=== PATIENT | male | born 1940 | race Caucasian/White ===

== ENCOUNTER 2018-10-10 12:26 | Emergency (ER) | payer MEDICARE, OTHER ==
[2018-10-10 12:44] VITALS: BP 183/83
--- NOTE | 2018-10-10 14:05 | EDM.PDOC ---
ED HPI GENERAL MEDICAL PROBLEM - General Chief Complaint: Lower Extremity Injury/Pain Stated Complaint: LEG INJURY Time Seen by Provider: 10/10/18 12:37 Source of Information: Reports: Patient History Limitations: Reports: No Limitations - History of Present Illness INITIAL COMMENTS - FREE TEXT/NARRATIVE: HISTORY AND PHYSICAL: History of present illness: Patient is a 78-year-old male who presents to the ED today with concern of a left hamstring injury. Patient states that a month ago he initially injured it while playing tennis. He states he saw his primary care provider at that time and did physical therapy with improvement of his hamstring. He states that a week ago, he was walking up the stairs and felt another "pop" of the same hamstring that he injured prior. He states that since then, he has not been able to get into his primary care provider to be evaluated. He does have an appointment in [address] Vasquez for evaluation of his hamstring. He rates his pain a 4 out of 10. He states he is taking Tylenol for his pain and discomfort. Patient denies fever, chills, chest pain, shortness of breath, or cough. Denies headache, neck stiff ness, change in vision, syncope, or near syncope. Denies nausea, vomiting, abdominal pain, diarrhea, constipation, or dysuria. Has not noted any blood in urine or stool. Patient has been eating and drinking appropriately. Review of systems: As per history of present illness and below otherwise all systems reviewed and negative. Past medical history: As per history of present illness and as reviewed below otherwise noncontributory. Surgical history: As per history of present illness and as reviewed below otherwise noncontributory. Social history: See social history for further information Family history: As per history of present illness and as reviewed below otherwise noncontributory. Physical exam: General: Patient is alert, oriented, and in no acute distress. He is sitting comfortably on exam table. HEENT: Atraumatic, normocephalic, pupils equal and reactive bilaterally, negative for conjunctival pallor or scleral icterus, mucous membranes moist, TMs normal bilaterally, throat clear, neck supple, nontender, trachea midline. No drooling or trismus noted. No meningeal signs. No hot potato voice noted. Lungs: Clear to auscultation, breath sounds equal bilaterally, chest nontender. Heart: S1S2, regular rate and rhythm without overt murmur Abdomen: Soft, nondistended, nontender. Negative for masses or hepatosplenomegaly. Negative for costovertebral tenderness. Pelvis: Stable nontender. Genitourinary: Deferred. Rectal: Deferred. Skin: See extremity. Intact, warm, dry. No lesions or rashes noted. Extremities: Atraumatic, negative for cords or calf pain. Neurovascular unremarkable. Patient does have moderate pain to palpation of the left hamstring body. There is several areas of bruising along the hamstring muscle/ body that correlate to where patient's pain is located. There is no edema or erythema of the leg. Dorsalis pedis and posterior tibial pulses are grossly intact bilaterally. Neuro: Awake, alert, oriented. Cranial nerves II through XII unremarkable. Cerebellum unremarkable. Motor and sensory unremarkable throughout. Exam nonfocal. Notes: Dr. Orellana was directly involved with patients care. Discussed with patient the importance to follow-up as scheduled with his primary care provider or with an orthopedic provider. Supportive care measures were reviewed and discussed. Voices understanding and is agreeable to plan of care. Denies any further questions or concerns at this time. Diagnostics: None Therapeutics: None Prescription: Voltaren Gel Impression: Hamstring injury Plan: 1. Rest, ice, elevate the affected extremity. You can apply ice and/or heat 15 minutes on, 15 minutes off. 2. Tylenol and/or Ibuprofen as directed for pain management or discomfort. 3. Follow up with the Orthopedic provider or primary care provider as discussed. Return to the ED as needed and as discussed. Definitive disposition and diagnosis as appropriate pending reevaluation and review of above. Right Leg Pain Score (Numeric/FACES): 7 - Related Data Allergies Allergy/AdvReac Type Severity Reaction Status Date / Time No Known Allergies Allergy Verified 02/06/16 10:49 Home Meds: Home Meds Levothyroxine [Synthroid] 100 mcg PO DAILY 04/06/14 [History] Omeprazole 20 mg PO DAILY 04/06/14 [History] amLODIPine [Norvasc] 5 mg PO DAILY 04/06/14 [History] Diclofenac Sodium [Voltaren] 75 mg PO ONETIME 01/19/16 [History] Valsartan [Diovan] 25 mg PO DAILY 01/19/16 [History] Pravastatin [Pravachol] 1 tab PO DAILY 02/06/16 [History] Past Medical History Cardiovascular History: Reports: High Cholesterol, Hypertension Gastrointestinal History: Reports: GERD Endocrine/Metabolic History: Reports: Hypothyroidism - Past Surgical History Cardiovascular Surgical History: Reports: Coronary Artery Bypass Social & Family History - Family History Cardiac: Reports: CAD Oncologic: Reports: Brain - Tobacco Use Smoking Status *Q: Never Smoker Second Hand Smoke Exposure: No - Caffeine Use Caffeine Use: Reports: None - Recreational Drug Use Recreational Drug Use: No Review of Systems - Review of Systems Review Of Systems: ROS reveals no pertinent complaints other than HPI. ED EXAM, GENERAL - Physical Exam Exam: See Below (see dictation) Course - Vital Signs Last Recorded V/S: Last Vital Signs Temp 36.4 C 10/10/18 12:42 Pulse 80 10/10/18 12:42 Resp 20 10/10/18 12:42 BP 183/83 H 10/10/18 12:42 Pulse Ox 98 10/10/18 12:42 Departure - Departure Time of Disposition: 14:00 Disposition: Home, Self-Care 01 Clinical Impression: Hamstring injury Qualifiers: Encounter type: initial encounter Laterality: left Qualified Code(s): S76.302A - Unspecified injury of muscle, fascia and tendon of the posterior muscle group at thigh level, left thigh, initial encounter - Discharge Information Instructions: Muscle Strain, [id number] Referrals: PCP,Unknown [Primary Care Provider] - Forms: ED Department Discharge Additional Instructions: The following information is given to patients seen in the emergency department who are being discharged to home. This information is to outline your options for follow-up care. We provide all patients seen in our emergency department with a follow-up referral. The need for follow-up, as well as the timing and circumstances, are variable depending upon the specifics of your emergency department visit. If you don't have a primary care physician on staff, we will provide you with a referral. We always advise you to contact your personal physician following an emergency department visit to inform them of the circumstance of the visit and for follow-up with them and/or the need for any referrals to a consulting specialist. The emergency department will also refer you to a specialist when appropriate. This referral assures that you have the opportunity for follow-up care with a specialist. All of these measure are taken in an effort to provide you with optimal care, which includes your follow-up. Under all circumstances we always encourage you to contact your private physician who remains a resource for coordinating your care. When calling for follow-up care, please make the office aware that this follow-up is from your recent emergency room visit. If for any reason you are refused follow-up, please contact the [facility] Emergency Department at and asked to speak to the emergency department charge nurse. [facility] [address] [place] [id number] [id number] 1. Rest, ice, elevate the affected extremity. You can apply ice and/or heat 15 minutes on, 15 minutes off. 2. Tylenol and/or Ibuprofen as directed for pain management or discomfort. 3. Follow up with the Orthopedic provider or primary care provider as discussed. Return to the ED as needed and as discussed.
== END 2018-10-10 14:20 | disposition home or self-care (01) ==
LOC: MW.ED 12:26
DX: S76.302A Unspecified injury of muscle, fascia and tendon of the posterior muscle group at thigh level, left thigh, initial encounter (principal); I10 Essential (primary) hypertension; E78.00 Pure hypercholesterolemia, unspecified; K21.9 Gastro-esophageal reflux disease without esophagitis; E03.9 Hypothyroidism, unspecified; Z79.899 Other long term (current) drug therapy; X58.XXXA Exposure to other specified factors, initial encounter
CPT/HCPCS: 99282; 99283

== ENCOUNTER 2018-12-02 07:08 | Emergency (ER) | payer MEDICARE, OTHER ==
[2018-12-02] MEDS ORDERED: Sodium Chloride 0.9% 500 ML IV SCH (07:15)
--- NOTE | 2018-12-02 07:34 | EDM.PDOC ---
ED HPI GENERAL MEDICAL PROBLEM - General Chief Complaint: Gastrointestinal Problem Stated Complaint: DIARRHEA FOR 3 DAYS Time Seen by Provider: 12/02/18 07:33 Source of Information: Reports: Patient - History of Present Illness INITIAL COMMENTS - FREE TEXT/NARRATIVE: HISTORY AND PHYSICAL: History of present illness: [Patient presents with loose watery stools multiple per day Thursday and Thursday, he has been taking Imodium applesauce bananas toast which has all his stools somewhat to semi-formed stool he denies any blood or mucus no pain he does have some crampy sensations in his abdomen occasionally, bowel movement was just prior to arrival He is in no distress no fever nausea vomiting chills sweats no chest pain shortness breath headache dizziness palpitation no urine symptoms ] Review of systems: As per history of present illness and below otherwise all systems reviewed and negative. Past medical history: As per history of present illness and as reviewed below otherwise noncontributory. Surgical history: As per history of present illness and as reviewed below otherwise noncontributory. Social history: No reported history of drug or alcohol abuse. Family history: As per history of present illness and as reviewed below otherwise noncontributory. Physical exam: HEENT: Atraumatic, normocephalic, pupils reactive, negative for conjunctival pallor or scleral icterus, mucous membranes moist, throat clear, neck supple, nontender, trachea midline. Lungs: Clear to auscultation, breath sounds equal bilaterally, chest nontender. Heart: S1S2, regular, negative for clicks, rubs, or JVD. Abdomen: Soft, nondistended, nontender. Negative for masses or hepatosplenomegaly. Negative for costovertebral tenderness. Pelvis: Stable nontender. Genitourinary: Deferred. Rectal: Deferred. Extremities: Atraumatic, negative for cords or calf pain. Neurovascular unremarkable. Neuro: Awake, alert, oriented. Cranial nerves II through XII unremarkable. Cerebellum unremarkable. Motor and sensory unremarkable throughout. Exam nonfocal. Diagnostics: [CBC CMP UA troponin lipase Stool cultures O&P norovirus guaiac Therapeutics: [Normal saline ]Reglan 10 mg IV I did offer the patient admission however he refused , and sent did provide IV Reglan recommend he stop Imodium strongly advised return if symptoms persist or worsen I did provide a stool collection equipment to return a stool sample today for stool testing as outlined above, certainly would admit done as return Impression: [Gastroenteritis] Ileus-likely medication effect from Imodium Definitive disposition and diagnosis as appropriate pending reevaluation and review of above. - Related Data Allergies Allergy/AdvReac Type Severity Reaction Status Date / Time No Known Allergies Allergy Verified 02/06/16 10:49 Home Meds: Home Meds Levothyroxine [Synthroid] 100 mcg PO DAILY 04/06/14 [History] Omeprazole 20 mg PO DAILY 04/06/14 [History] amLODIPine [Norvasc] 5 mg PO DAILY 04/06/14 [History] Valsartan [Diovan] 25 mg PO DAILY 01/19/16 [History] Pravastatin [Pravachol] 1 tab PO DAILY 02/06/16 [History] Aspirin 81 mg PO DAILY 12/02/18 [History] Metoprolol Tartrate 25 mg PO DAILY 12/02/18 [History] Past Medical History HEENT History: Reports: Impaired Vision Cardiovascular History: Reports: Bypass, High Cholesterol, Hypertension, HI Gastrointestinal History: Reports: GERD Endocrine/Metabolic History: Reports: Hypothyroidism - Past Surgical History Cardiovascular Surgical History: Reports: Coronary Artery Bypass Social & Family History - Family History Family Medical History: Noncontributory Cardiac: Reports: CAD Oncologic: Reports: Brain - Tobacco Use Smoking Status *Q: Never Smoker - Caffeine Use Caffeine Use: Reports: Coffee - Recreational Drug Use Recreational Drug Use: No ED ROS GENERAL - Review of Systems Review Of Systems: See Below ED EXAM, GENERAL - Physical Exam Exam: See Below Course - Vital Signs Last Recorded V/S: Last Vital Signs Temp 98.6 F 12/02/18 07:25 Pulse 94 12/02/18 07:25 Resp 16 12/02/18 07:25 BP 136/72 12/02/18 07:25 Pulse Ox 98 12/02/18 07:25 - Orders/Labs/Meds Orders: Active Orders 24 hr Category Date Time Status Abdomen 2V AP Flat Upright [CR] Stat Exams 12/02/18 08:04 Taken CDIFF TOX A+B [OP] Stat Lab 12/02/18 07:09 Ordered CULTURE STOOL + CAMPY+SHIGATOX [RM] Stat Lab 12/02/18 07:09 Ordered NOROVIRUS, RT-PCR Stat Lab 12/02/18 07:09 Ordered OCCULT BLOOD DIAGNOSTIC [OP] Stat Lab 12/02/18 07:09 Ordered OVA & PARASITES BY IMMUNOASSAY [MREF] Stat Lab 12/02/18 07:09 Ordered UA RFX MARNIE AND CULT IF INDIC [URIN] Stat Lab 12/02/18 07:09 Ordered Metoclopramide [Reglan] Med 12/02/18 09:10 Once 10 mg IV ONETIME ONE Sodium Chloride 0.9% [Normal Saline] 500 ml Med 12/02/18 07:15 Active IV STAT Isolation [COMM] Stat Oth 12/02/18 07:11 Ordered Medication Orders Sodium Chloride (Normal Saline) 500 mls @ 999 mls/hr IV STAT MIRA Last Admin: 12/02/18 07:41 Dose: 999 mls/hr Labs: Laboratory Tests 12/02/18 12/02/18 Range/Units 07:35 07:35 WBC 8.11 (4.0-11.0) K/uL RBC 4.89 (4.50-5.90) M/uL Hgb 15.0 (13.0-17.0) g/dL Hct 42.0 (38.0-50.0) % MCV 85.9 (80.0-98.0) fL MCH 30.7 (27.0-32.0) pg MCHC 35.7 (31.0-37.0) g/dL RDW Std Deviation 41.4 (28.0-62.0) fl RDW Coeff of [place] 13 (11.0-15.0) % Plt Count 214 (150-400) K/uL MPV 9.80 (7.40-12.00) fL Add Manual Diff YES Neutrophils % (Manual) 69 (48.0-80.0) % Band Neutrophils % 5 % Lymphocytes % (Manual) 10 L (16.0-40.0) % Monocytes % (Manual) 14 (0.0-15.0) % Eosinophils % (Manual) 2 (0.0-7.0) % Nucleated RBC % 0.0 /100WBC Absolute Seg Neuts 5.6 (1.4-5.7) Band Neutrophils # 0.4 Lymphocytes # (Manual) 0.8 (0.6-2.4) Monocytes # (Manual) 1.1 H (0.0-0.8) Eosinophils # (Manual) 0.2 (0.0-0.7) Nucleated RBCs # 0 K/uL Sodium 131 L (136-148) mmol/L Potassium 3.3 L (3.5-5.1) mmol/L Chloride 96 L (98-107) mmol/L Carbon Dioxide 23.3 (21.0-32.0) mmol/L BUN 11 (7.0-18.0) mg/dL Creatinine 1.0 (0.8-1.3) mg/dL Est Cr Clr Drug Dosing 61.85 mL/min Estimated GFR (MDRD) > 60.0 ml/min Glucose 119 H (74-106) mg/dL Calcium 8.7 (8.5-10.1) mg/dL Total Bilirubin 0.7 (0.2-1.0) mg/dL AST 21 (15-37) IU/L ALT 29 (14-63) IU/L Alkaline Phosphatase 64 (46-116) U/L Troponin I < 0.050 (0.000-0.056) ng/mL Total Protein 7.0 (6.4-8.2) g/dL Albumin 3.4 (3.4-5.0) g/dL Globulin 3.6 (2.6-4.0) g/dL Albumin/Globulin Ratio 0.9 (0.9-1.6) Lipase 102 (73-393) U/L Meds: Medications Generic Name Dose Route Start Last Admin Trade Name Freq PRN Reason Stop Dose Admin Sodium Chloride 500 mls @ 999 mls/hr 12/02/18 07:15 12/02/18 07:41 Normal Saline IV 999 mls/hr STAT MIRA Administration Departure - Departure Time of Disposition: 09:14 Disposition: Home, Self-Care 01 Condition: Good, Fair Clinical Impression: Gastroenteritis, Ileus - Discharge Information Referrals: Israel Vasquez MD [Primary Care Provider] - Forms: ED Department Discharge Additional Instructions: Return stool sample collection equipment provided Medication as prescribed Operative Imodium Pepto-Bismol with each loose stool Again return if symptoms persist or worsen for consideration of admission The following information is given to patients seen in the emergency department who are being discharged to home. This information is to outline your options for follow-up care. We provide all patients seen in our emergency department with a follow-up referral. The need for follow-up, as well as the timing and circumstances, are variable depending upon the specifics of your emergency department visit. If you don't have a primary care physician on staff, we will provide you with a referral. We always advise you to contact your personal physician following an emergency department visit to inform them of the circumstance of the visit and for follow-up with them and/or the need for any referrals to a consulting specialist. The emergency department will also refer you to a specialist when appropriate. This referral assures that you have the opportunity for follow-up care with a specialist. All of these measure are taken in an effort to provide you with optimal care, which includes your follow-up. Under all circumstances we always encourage you to contact your private physician who remains a resource for coordinating your care. When calling for follow-up care, please make the office aware that this follow-up is from your recent emergency room visit. If for any reason you are refused follow-up, please contact the [facility] emergency department at and asked to speak to the emergency department charge nurse. - My Orders Last 24 Hours: My Active Orders 12/02/18 07:09 CDIFF TOX A+B [OP] Stat CULTURE STOOL + CAMPY+SHIGATOX [RM] Stat NOROVIRUS, RT-PCR Stat OCCULT BLOOD DIAGNOSTIC [OP] Stat OVA & PARASITES BY IMMUNOASSAY [MREF] Stat UA RFX MARNIE AND CULT IF INDIC [URIN] Stat 12/02/18 07:11 Isolation [COMM] Stat 12/02/18 07:15 Sodium Chloride 0.9% [Normal Saline] 500 ml IV STAT 12/02/18 08:04 Abdomen 2V AP Flat Upright [CR] Stat 12/02/18 09:10 Metoclopramide [Reglan] 10 mg IV ONETIME ONE - Assessment/Plan Last 24 Hours: My Active Orders 12/02/18 07:09 CDIFF TOX A+B [OP] Stat CULTURE STOOL + CAMPY+SHIGATOX [RM] Stat NOROVIRUS, RT-PCR Stat OCCULT BLOOD DIAGNOSTIC [OP] Stat OVA & PARASITES BY IMMUNOASSAY [MREF] Stat UA RFX MARNIE AND CULT IF INDIC [URIN] Stat 12/02/18 07:11 Isolation [COMM] Stat 12/02/18 07:15 Sodium Chloride 0.9% [Normal Saline] 500 ml IV STAT 12/02/18 08:04 Abdomen 2V AP Flat Upright [CR] Stat 12/02/18 09:10 Metoclopramide [Reglan] 10 mg IV ONETIME ONE
[2018-12-02 08:27] LABS: CHLORIDE,CL 96 mmol/L (98-107); SODIUM,NA 131 mmol/L (136-148)
[2018-12-02] MEDS ORDERED: Metoclopramide 10 MG/2 ML SDV IV ONE (09:10)
[2018-12-02 09:29] VITALS: BP 136/81
--- NOTE | 2018-12-02 16:37 | CR ---
EXAM DATE: 12/02/18 PATIENT'S AGE: 78 Patient: ALYSHA JOSÉ Facility: [facility] Site Site : [id number] Study: XRay-Abdomen [id number]/30/2019 8:51:11 AM Ordering Physician: RADHA MAS MD Final Report: INDICATION: Abdominal pain; diarrhea. COMPARISON: None. TECHNIQUE: Two-view study abdomen including upright. FINDINGS: Dilatation of the small bowl loops in the right and left lower abdomen. Copious amounts of retained stool in the colon. No pneumoperitoneum. Postop changes lower lumbar spine. No abnormal intra-abdominal calcifications. Extensive vascular calcifications identified throughout. IMPRESSION: 1. Dilated small bowel; ileus versus partial mechanical small bowel obstruction. 2. Postop changes lower lumbar spine. 3. No pneumoperitoneum. Dictated by Rishi Workman MD @ Dec 02 2018 8:54AM Signed by: Rishi Workman MD @12/02/2018 8:57:44 AM (Electronic Signature) Report Signed by Proxy. [facility]
== END 2018-12-02 09:29 | disposition home or self-care (01) ==
LOC: MW.ED 07:08
DX: K52.9 Noninfective gastroenteritis and colitis, unspecified (principal); K56.7 Ileus, unspecified; K21.9 Gastro-esophageal reflux disease without esophagitis; E78.00 Pure hypercholesterolemia, unspecified; I10 Essential (primary) hypertension; I25.2 Old myocardial infarction; E03.9 Hypothyroidism, unspecified; Z79.899 Other long term (current) drug therapy
CPT/HCPCS: 36415; 74019; 80053; 81001; 82272; 83690; 84484; 85025; 87046; 87324; 87328; 87329; 87798; 87899; 96374; 99284; J2765; J7040

== ENCOUNTER 2021-11-28 21:35 | Emergency (ER) | payer MEDICARE, OTHER ==
[2021-11-28] MEDS ORDERED: Sodium Chloride 0.9% 1,000 ML IV ONE (22:09)
[2021-11-28 23:47] LABS: BLOOD UREA NITROGEN,BUN 21 mg/dL (7.0-18.0); CARBON DIOXIDE,CO2 25.6 mmol/L (21.0-32.0); CHLORIDE,CL 101 mmol/L (98-107); GLUCOSE RANDOM 99 mg/dL (74-106); LIPASE 112 U/L (73-393); POTASSIUM,K 3.3 mmol/L (3.5-5.1); SODIUM,NA 138 mmol/L (136-148)
[2021-11-29] MEDS ORDERED: Iopamidol 755 MG/ML 500 ML Multipack Bottle IVPUSH STA (00:29)
[2021-11-29] MEDS ORDERED: Simethicone 80 MG Tab.Chew PO STA (01:25)
[2021-11-29 01:39] VITALS: BP 131/88; PULSE 78
== END 2021-11-29 01:35 | disposition home or self-care (01) ==
LOC: MW.ED 21:35
DX: R10.9 Unspecified abdominal pain (principal); E78.00 Pure hypercholesterolemia, unspecified; I10 Essential (primary) hypertension; I25.2 Old myocardial infarction; K21.9 Gastro-esophageal reflux disease without esophagitis; E03.9 Hypothyroidism, unspecified; Z79.899 Other long term (current) drug therapy; Z79.82 Long term (current) use of aspirin; Z95.5 Presence of coronary angioplasty implant and graft; Z86.16 Personal history of COVID-19
CPT/HCPCS: 36415; 71045; 74177; 80053; 81001; 83605; 83690; 84484; 85025; 93005; 99284; A9270; J7030; Q9967; 99283

== ENCOUNTER 2023-03-18 16:08 | Emergency (ER) | payer MEDICARE, OTHER ==
[2023-03-18 18:10] VITALS: BP 149/94; PULSE 73
== END 2023-03-18 18:09 | disposition home or self-care (01) ==
LOC: MW.ED 16:08
DX: I10 Essential (primary) hypertension (principal); E78.5 Hyperlipidemia, unspecified; E03.9 Hypothyroidism, unspecified; K21.9 Gastro-esophageal reflux disease without esophagitis; Z71.1 Person with feared health complaint in whom no diagnosis is made; Z79.899 Other long term (current) drug therapy; Z79.82 Long term (current) use of aspirin; Z95.1 Presence of aortocoronary bypass graft
CPT/HCPCS: 93005; 93010; 99282; 99283

== ENCOUNTER 2023-10-25 16:36 | Emergency (ER) | payer MEDICARE, OTHER ==
[2023-10-25 17:17] VITALS: BP 169/106; PULSE 85
== END 2023-10-25 17:17 | disposition home or self-care (01) ==
LOC: MW.ED 16:36
DX: I10 Essential (primary) hypertension (principal); E03.9 Hypothyroidism, unspecified; K21.9 Gastro-esophageal reflux disease without esophagitis; Z95.1 Presence of aortocoronary bypass graft; Z79.82 Long term (current) use of aspirin; Z79.899 Other long term (current) drug therapy
CPT/HCPCS: 99283

== ENCOUNTER 2023-10-26 20:36 | Emergency (ER) | payer MEDICARE, OTHER ==
[2023-10-26 21:21] VITALS: BP 157/86; PULSE 74
== END 2023-10-26 21:21 | disposition home or self-care (01) ==
LOC: MW.ED 20:36
DX: I10 Essential (primary) hypertension (principal); K21.9 Gastro-esophageal reflux disease without esophagitis; E03.9 Hypothyroidism, unspecified; Z79.82 Long term (current) use of aspirin; Z95.1 Presence of aortocoronary bypass graft; Z79.899 Other long term (current) drug therapy
CPT/HCPCS: 99283

== ENCOUNTER 2024-04-02 18:34 | Emergency (ER) | payer MEDICARE, OTHER ==
[2024-04-02 19:10] LABS: BASOPHILS ABSOLUTE AUTO 0.06 K/uL (0.00-0.20); BASOPHILS PERCENT AUTO 0.7 % (0.0-1.0); EOSINOPHILS ABSOLUTE AUTO 0.19 K/uL (0.00-0.45); EOSINOPHILS PERCENT AUTO 2.1 % (0.0-6.0); HEMATOCRIT 43.4 % (42.0-52.0); HEMOGLOBIN 15.1 g/dL (14.0-18.0); IMMATURE GRAN ABSOLUTE AUTO 0.02 K/uL (0.00-0.05); IMMATURE GRAN PERCENT AUTO 0.2 % (0.0-0.4); LYMPHOCYTES PERCENT AUTO 32.7 % (24.0-44.0); MEAN CORPUSCULAR HEMOGLOBIN 30.1 pg (28.0-32.0); MEAN CORPUSCULAR HGB CONC 34.8 g/dL (32.0-36.0); MEAN CORPUSCULAR VOLUME 86.5 fL (83.0-99.0); MEAN PLATELET VOLUME 9.8 fL (9.4-12.4); MONOCYTES ABSOLUTE AUTO 0.91 K/uL (0.00-0.80); MONOCYTES PERCENT AUTO 10.3 % (0.0-8.0); NEUTROPHILS ABSOLUTE AUTO 4.78 K/uL (1.80-7.70); PLATELET COUNT,PLT 230 K/uL (150-400); RED BLOOD CELL COUNT 5.02 M/uL (4.52-5.90); WHITE BLOOD CELL COUNT,WBC 8.86 K/uL (3.9-11.3)
[2024-04-02 19:21] LABS: A/G RATIO 1.2 (0.9-1.6); BILIRUBIN TOTAL 0.5 mg/dL (0.2-1.0); CALCIUM 9.2 mg/dL (8.5-10.1); CARBON DIOXIDE,CO2 24.9 mmol/L (21.0-32.0); EST CRCL DRUG DOSING (CG) 55.76 mL/min; PROTEIN TOTAL,TP 7.3 g/dL (6.4-8.2)
[2024-04-02 19:56] LABS: APPEARANCE,URINE CLEAR; BILIRUBIN,URINE NEGATIVE (NEGATIVE); COLOR,URINE YELLOW; GLUCOSE,URINE NEGATIVE (NEGATIVE); KETONES,URINE NEGATIVE (NEGATIVE); LEUKOCYTE ESTERASE,URINE NEGATIVE (NEGATIVE); NITRITE,URINE NEGATIVE (NEGATIVE); OCCULT BLOOD,URINE TRACE-INTACT (NEGATIVE); PROTEIN,URINE NEGATIVE (NEGATIVE); UROBILINOGEN,URINE 0.2 EU/dL (<2.0)
[2024-04-02 19:57] LABS: BACTERIA,URINE NOT SEEN (NEGATIVE); EPITHELIAL CELLS,URINE NOT SEEN (NONE-FEW); RBC,URINE 0-2 (0-2/HPF); WBC,URINE 0-1 (0-5/HPF)
[2024-04-02] MEDS: Iopamidol 755 MG/ML 500 ML Multipack Bottle IVPUSH ONE (20:04)
[2024-04-02 21:08] VITALS: BP 141/80; PULSE 75
== END 2024-04-02 21:08 | disposition home or self-care (01) ==
LOC: MW.ED 18:34
DX: K59.00 Constipation, unspecified (principal); I10 Essential (primary) hypertension; K21.9 Gastro-esophageal reflux disease without esophagitis; E03.9 Hypothyroidism, unspecified; Z95.5 Presence of coronary angioplasty implant and graft; Z79.82 Long term (current) use of aspirin; Z79.899 Other long term (current) drug therapy; Z88.5 Allergy status to narcotic agent
CPT/HCPCS: 36415; 74177; 80053; 81001; 85025; 99284; Q9967